=== PATIENT | female | born 1940 | race Caucasian/White ===

== ENCOUNTER 2019-05-13 15:41 | Observation (INO) ==
[2019-05-13] MEDS ORDERED: Isovue-370 500 ML BOTTLE IVP ONE (16:05)
[2019-05-13 16:15] LABS: Basophils % 0.1 %; Eosinophils # 0.1 K/mcL (0.0-0.6); Eosinophils % 0.6 %; Hematocrit 35.6 % (35.3-44.9); Immature Granulocytes % 0.9 % (0-4); Lymphocytes # 1.7 K/mcL (0.6-4.6); Lymphocytes % 11.5 %; Mean Corpuscular HGB Conc 33.7 g/dL (31.6-35.5); Mean Corpuscular Hemoglobin 32.4 pg (28.0-33.3); Mean Corpuscular Volume 96.2 fL (83.0-100.0); Monocytes # 0.8 K/mcL (0.0-1.3); Monocytes % 5.4 %; Neutrophils # 11.8 K/mcL (1.6-8.9); Platelet Count 113 K/mcL (140-400); Red Cell Distribution Width 15.3 % (11.5-14.5); Segmented Neutrophils % 81.5 %; White Blood Count 14.4 K/mcL (4.3-11.1)
[2019-05-13 16:37] LABS: BUN/Creatinine Ratio 21 (6-26); Blood Urea Nitrogen 15 mg/dL (8-23); Calcium 9.7 mg/dL (8.6-10.3); Carbon Dioxide 25 mEq/L (23-29); Chloride 101 mEq/L (98-107); Glucose 136 mg/dL (70-105); Osmolality,Calculated 293 (280-300); Potassium 4.1 mEq/L (3.5-5.1); Sodium 140 mEq/L (136-145); eGFR For African Americans > 60 (> 60); eGFR For Non-African Americans > 60 (> 60)
[2019-05-13 16:38] LABS: Troponin I 0.03 ng/mL (< 0.04)
[2019-05-13] MEDS ORDERED: Aspirin 325 MG TABLET PO ONE (17:07)
[2019-05-13] MEDS ORDERED: Naloxone 0.4 MG/ML INJ IVP PRN (17:56)
[2019-05-14] MEDS: Nitroglycerin 0.4 MG TAB.SUBL SL PRN ×2 (03:23→03:29)
[2019-05-14] MEDS ORDERED: Morphine Sulfate 2 MG/ML SYRINGE IVP ONE (03:52)
[2019-05-14 03:54] LABS: Basophils % 0.3 %; Eosinophils # 0.1 K/mcL (0.0-0.6); Eosinophils % 0.6 %; Hematocrit 35.1 % (35.3-44.9); Hemoglobin 11.6 g/dL (11.5-15.4); Lymphocytes # 1.8 K/mcL (0.6-4.6); Lymphocytes % 12.6 %; Mean Platelet Volume 9.7 fL (9.4-12.4); Monocytes # 0.8 K/mcL (0.0-1.3); Monocytes % 5.7 %; Neutrophils # 11.3 K/mcL (1.6-8.9); Platelet Count 106 K/mcL (140-400); Red Blood Count 3.62 M/mcL (3.82-4.97); Red Cell Distribution Width 15.2 % (11.5-14.5); Segmented Neutrophils % 79.8 %; White Blood Count 14.1 K/mcL (4.3-11.1)
[2019-05-14 04:09] LABS: BUN/Creatinine Ratio 26 (6-26); Blood Urea Nitrogen 19 mg/dL (8-23); Calcium 9.3 mg/dL (8.6-10.3); Carbon Dioxide 21 mEq/L (23-29); Chloride 106 mEq/L (98-107); Glucose 113 mg/dL (70-105); Osmolality,Calculated 285 (280-300); Potassium 4.1 mEq/L (3.5-5.1); Sodium 136 mEq/L (136-145); eGFR For African Americans > 60 (> 60); eGFR For Non-African Americans > 60 (> 60)
[2019-05-14 04:11] LABS: Troponin I < 0.03 ng/mL (< 0.04)
[2019-05-14] MEDS ORDERED: Regadenoson 0.4 MG/5 ML SYRINGE IVP ONE (07:15)
[2019-05-14] MEDS: Aspirin Enteric Coated 81 MG Tablet PO SCH (11:08)
[2019-05-15] MEDS ORDERED: *HR* Promethazine 25 MG/ML VIAL IVP ONE (03:20)
[2019-05-15] MEDS ORDERED: Morphine Sulfate 2 MG/ML SYRINGE IVP ONE (03:21)
[2019-05-15 04:42] LABS: Basophils % 0.4 %; Eosinophils # 0.1 K/mcL (0.0-0.6); Eosinophils % 0.5 %; Hematocrit 35.6 % (35.3-44.9); Hemoglobin 11.7 g/dL (11.5-15.4); Immature Granulocytes % 0.5 % (0-4); Lymphocytes # 1.3 K/mcL (0.6-4.6); Lymphocytes % 11.9 %; Mean Corpuscular HGB Conc 32.9 g/dL (31.6-35.5); Mean Corpuscular Hemoglobin 32.1 pg (28.0-33.3); Mean Corpuscular Volume 97.5 fL (83.0-100.0); Mean Platelet Volume 9.9 fL (9.4-12.4); Monocytes # 0.7 K/mcL (0.0-1.3); Monocytes % 6.3 %; Neutrophils # 8.8 K/mcL (1.6-8.9); Platelet Count 108 K/mcL (140-400); Red Blood Count 3.65 M/mcL (3.82-4.97); Red Cell Distribution Width 15.2 % (11.5-14.5); Segmented Neutrophils % 80.4 %
[2019-05-15 05:02] LABS: BUN/Creatinine Ratio 29 (6-26); Blood Urea Nitrogen 20 mg/dL (8-23); Calcium 9.3 mg/dL (8.6-10.3); Carbon Dioxide 23 mEq/L (23-29); Chloride 104 mEq/L (98-107); Glucose 134 mg/dL (70-105); Osmolality,Calculated 289 (280-300); Potassium 4.4 mEq/L (3.5-5.1); Sodium 137 mEq/L (136-145); eGFR For African Americans > 60 (> 60); eGFR For Non-African Americans > 60 (> 60)
[2019-05-15] MEDS: Aspirin Enteric Coated 81 MG Tablet PO SCH (08:17)
[2019-05-15 12:49] VITALS: BP 147/65
== END 2019-05-15 14:58 | disposition home or self-care (01) ==
LOC: 3BNU 15:41 → EMEROOARM 15:41 → 3BNU 18:00
PROVIDERS: ADMIT Internal Medicine; ATTEND Internal Medicine

== ENCOUNTER 2021-10-15 16:18 | Observation (INO) ==
[2021-10-15 19:19] LABS: Basophils % 0.3 %; Eosinophils # 0.1 K/mcL (0.0-0.6); Hematocrit 25.4 % (35.3-44.9); Hemoglobin 7.9 g/dL (11.5-15.4); Immature Granulocytes % 0.3 % (0-4); Lymphocytes # 1.5 K/mcL (0.6-4.6); Lymphocytes % 16.4 %; Mean Corpuscular HGB Conc 31.1 g/dL (31.6-35.5); Mean Corpuscular Hemoglobin 27.4 pg (28.0-33.3); Mean Corpuscular Volume 88.2 fL (83.0-100.0); Mean Platelet Volume 8.9 fL (9.4-12.4); Monocytes # 0.9 K/mcL (0.0-1.3); Monocytes % 9.3 %; Neutrophils # 6.7 K/mcL (1.6-8.9); Platelet Count 303 K/mcL (140-400); Red Blood Count 2.88 M/mcL (3.82-4.97); Red Cell Distribution Width 17.2 % (11.5-14.5); Segmented Neutrophils % 72.7 %; White Blood Count 9.2 K/mcL (4.3-11.1)
[2021-10-15 19:45] LABS: BUN/Creatinine Ratio 22 (6-26); Blood Urea Nitrogen 18 mg/dL (8-23); Calcium 8.8 mg/dL (8.6-10.3); Carbon Dioxide 24 mEq/L (23-29); Chloride 106 mEq/L (98-107); Glucose 98 mg/dL (70-105); Osmolality,Calculated 288 (280-300); Potassium 3.8 mEq/L (3.5-5.1); Sodium 138 mEq/L (136-145); Troponin I < 0.03 ng/mL (< 0.04); eGFR For African Americans > 60 (> 60); eGFR For Non-African Americans > 60 (> 60)
[2021-10-15 20:05] LABS: Adenovirus Not Detected (Not Detect); Bordetella Pertussis Not Detected (Not Detect); Chlamydophila pneumoniae Not Detected (Not Detect); Coronavirus 229E Not Detected (Not Detect); Coronavirus HKU1 Not Detected (Not Detect); Coronavirus NL63 Not Detected (Not Detect); Coronavirus OC43 Not Detected (Not Detect); Human Metapneumovirus Not Detected (Not Detect); Human Rhinovirus/Enterovirus Not Detected (Not Detect); Influenza A Subtype 2009 H1 Not Detected (Not Detect); Influenza B Not Detected (Not Detect); Mycoplasma pneumoniae Not Detected (Not Detect); Parainfluenza Virus 1 Not Detected (Not Detect); Parainfluenza Virus 2 Not Detected (Not Detect); Parainfluenza Virus 3 Not Detected (Not Detect); Parainfluenza Virus 4 Not Detected (Not Detect); Respiratory Syncytial Virus Not Detected (Not Detect); SARS-CoV-2 Not Detected (Not Detect)
[2021-10-15] MEDS ORDERED: Furosemide 20 MG/2 ML VIAL IVP ONE (20:24)
[2021-10-15] MEDS ORDERED: Acetaminophen 325 MG TABLET PO PRN (22:23)
[2021-10-15] MEDS ORDERED: Ondansetron 4 MG/2 ML VIAL IVP PRN (22:23)
[2021-10-15] MEDS ORDERED: Melatonin 3 MG TABLET PO PRN (22:23)
[2021-10-15] MEDS ORDERED: Naloxone 0.4 MG/ML INJ IVP PRN (22:23)
[2021-10-15] MEDS ORDERED: Perflutren Lipid Microsphere 1.3 ML in 0.9 % Sodium Chloride 8.7 ML IVP PRN (22:25)
[2021-10-16] MEDS ORDERED: Benzonatate 100 MG CAPSULE PO PRN (01:49)
[2021-10-16 05:03] LABS: Basophils % 0.4 %; Eosinophils # 0.2 K/mcL (0.0-0.6); Eosinophils % 2.1 %; Hematocrit 25.3 % (35.3-44.9); Hemoglobin 7.8 g/dL (11.5-15.4); Immature Granulocytes % 0.1 % (0-4); Lymphocytes # 1.2 K/mcL (0.6-4.6); Mean Corpuscular HGB Conc 30.8 g/dL (31.6-35.5); Mean Corpuscular Hemoglobin 27.1 pg (28.0-33.3); Mean Corpuscular Volume 87.8 fL (83.0-100.0); Mean Platelet Volume 8.9 fL (9.4-12.4); Monocytes # 0.7 K/mcL (0.0-1.3); Monocytes % 10.3 %; Neutrophils # 4.9 K/mcL (1.6-8.9); Platelet Count 290 K/mcL (140-400); Red Blood Count 2.88 M/mcL (3.82-4.97); Red Cell Distribution Width 17.2 % (11.5-14.5); Segmented Neutrophils % 70.1 %; White Blood Count 7.1 K/mcL (4.3-11.1)
[2021-10-16 05:20] LABS: % Iron Saturation 6 % (15-50); Iron 18 mcg/dL (50-170); Transferrin 199 mg/dL (203-362)
[2021-10-16 05:32] LABS: Alanine Aminotransferase 14 Units/L (7-52); Albumin 3.1 g/dL (3.5-5.7); Albumin/Globulin Ratio 1.2 (1.1-2.2); Alkaline Phosphatase 56 Units/L (34-104); Aspartate Amino Transferase 15 Units/L (13-39); BUN/Creatinine Ratio 19 (6-26); Bilirubin,Total 0.8 mg/dL (0.3-1.0); Blood Urea Nitrogen 15 mg/dL (8-23); Calcium 8.6 mg/dL (8.6-10.3); Carbon Dioxide 26 mEq/L (23-29); Chloride 105 mEq/L (98-107); Globulin 2.5 g/dL (2.4-3.5); Glucose 112 mg/dL (70-105); Magnesium 1.9 mg/dL (1.6-2.6); Osmolality,Calculated 292 (280-300); Phosphorous 4.3 mg/dL (2.7-4.5); Potassium 3.6 mEq/L (3.5-5.1); Sodium 140 mEq/L (136-145); Total Protein 5.6 g/dL (6.4-8.9); eGFR For African Americans > 60 (> 60); eGFR For Non-African Americans > 60 (> 60)
[2021-10-16 05:39] LABS: Ferritin 99 ng/mL (10-120)
[2021-10-16 05:48] LABS: Folate > 22.3 ng/mL (3.0-16.0); Vitamin B12 560 pg/mL (250-1100)
[2021-10-16] MEDS ORDERED: *HR* Heparin 5,000 UNIT/ML VIAL SQ SCH (06:00)
[2021-10-16] MEDS: Furosemide 20 MG/2 ML VIAL IVP SCH (08:08)
[2021-10-16] MEDS: lisinopriL 5 MG TABLET PO SCH (08:08)
[2021-10-17 05:34] LABS: Basophils % 0.3 %; Eosinophils # 0.2 K/mcL (0.0-0.6); Eosinophils % 1.6 %; Hematocrit 24.7 % (35.3-44.9); Hemoglobin 7.4 g/dL (11.5-15.4); Immature Granulocytes % 0.4 % (0-4); Lymphocytes # 1.3 K/mcL (0.6-4.6); Lymphocytes % 13.3 %; Mean Corpuscular Hemoglobin 26.5 pg (28.0-33.3); Mean Corpuscular Volume 88.5 fL (83.0-100.0); Mean Platelet Volume 8.9 fL (9.4-12.4); Monocytes # 1.2 K/mcL (0.0-1.3); Monocytes % 12.2 %; Neutrophils # 6.8 K/mcL (1.6-8.9); Nucleated Red Blood Cells 0.2 /100 WBC (0); Platelet Count 283 K/mcL (140-400); Red Blood Count 2.79 M/mcL (3.82-4.97); Red Cell Distribution Width 17.5 % (11.5-14.5); Segmented Neutrophils % 72.2 %; White Blood Count 9.4 K/mcL (4.3-11.1)
[2021-10-17 05:42] LABS: BUN/Creatinine Ratio 20 (6-26); Blood Urea Nitrogen 19 mg/dL (8-23); Calcium 8.2 mg/dL (8.6-10.3); Carbon Dioxide 27 mEq/L (23-29); Chloride 106 mEq/L (98-107); Glucose 123 mg/dL (70-105); Osmolality,Calculated 292 (280-300); Potassium 3.8 mEq/L (3.5-5.1); Sodium 139 mEq/L (136-145); eGFR For African Americans > 60 (> 60); eGFR For Non-African Americans 57 (> 60)
[2021-10-17] MEDS: Furosemide 20 MG/2 ML VIAL IVP SCH (08:08)
[2021-10-17] MEDS: lisinopriL 5 MG TABLET PO SCH (08:08)
[2021-10-17] MEDS ORDERED: Multivit/Ca/Min/Fe/FA 1 TAB TABLET PO SCH (09:00)
[2021-10-17 10:53] VITALS: O2SAT 95
[2021-10-17 10:57] VITALS: BP 126/35; PULSE 60; TEMP 97.8
== END 2021-10-17 12:10 | disposition home or self-care (01) ==
LOC: EMEROOARM 16:18 → 2NENU 16:18 → SUATTDRO 21:12 → 2NENU 22:18
PROVIDERS: ADMIT Internal Medicine; ATTEND Internal Medicine

== ENCOUNTER 2021-12-12 07:47 | Inpatient (IN) ==
[2021-12-12] MEDS ORDERED: Ondansetron 4 MG/2 ML VIAL IVP ONE (08:00)
[2021-12-12] MEDS ORDERED: GI Cocktail 40 ML EACH PO ONE (08:00)
[2021-12-12 08:28] LABS: Basophils % 0.2 %; Eosinophils % 0.3 %; Hematocrit 31.3 % (35.3-44.9); Hemoglobin 9.7 g/dL (11.5-15.4); Immature Granulocytes % 0.4 % (0-4); Lymphocytes # 1.7 K/mcL (0.6-4.6); Lymphocytes % 16.3 %; Mean Corpuscular Volume 83.9 fL (83.0-100.0); Mean Platelet Volume 8.8 fL (9.4-12.4); Monocytes # 0.9 K/mcL (0.0-1.3); Monocytes % 8.3 %; Neutrophils # 7.9 K/mcL (1.6-8.9); Platelet Count 301 K/mcL (140-400); Red Blood Count 3.73 M/mcL (3.82-4.97); Red Cell Distribution Width 17.2 % (11.5-14.5); Segmented Neutrophils % 74.5 %; White Blood Count 10.6 K/mcL (4.3-11.1)
[2021-12-12 08:42] LABS: INR 1.2; Prothrombin Time 12.9 Seconds (9.4-12.1)
[2021-12-12 08:44] LABS: Activated Partial Thrombo Time 33.2 Seconds (26.0-36.0)
[2021-12-12 08:47] LABS: Albumin/Globulin Ratio 0.8 (1.1-2.2); Bilirubin,Direct 0.1 mg/dL (0.0-0.2); Bilirubin,Indirect 0.2 mg/dL (0.0-1.0); Bilirubin,Total 0.3 mg/dL (0.3-1.0); Globulin 3.6 g/dL (2.4-3.5); Total Protein 6.6 g/dL (6.4-8.9)
[2021-12-12 08:48] LABS: BUN/Creatinine Ratio 35 (6-26); Blood Urea Nitrogen 26 mg/dL (8-23); Calcium 9.1 mg/dL (8.6-10.3); Carbon Dioxide 24 mEq/L (23-29); Chloride 102 mEq/L (98-107); Glucose 157 mg/dL (70-105); Osmolality,Calculated 290 (280-300); Potassium 3.9 mEq/L (3.5-5.1); Sodium 136 mEq/L (136-145); Troponin I < 0.03 ng/mL (< 0.04); eGFR For African Americans > 60 (> 60); eGFR For Non-African Americans > 60 (> 60)
[2021-12-12] MEDS ORDERED: Naloxone 0.4 MG/ML INJ IVP PRN (09:45)
[2021-12-12] MEDS ORDERED: Melatonin 3 MG TABLET PO PRN (09:45)
[2021-12-12] MEDS ORDERED: Iopamidol - 370 500 ML MLS IVP ONE (10:38)
[2021-12-12] MEDS: amLODIPine 5 MG TABLET PO SCH (11:17)
[2021-12-12 14:19] LABS: Troponin I < 0.03 ng/mL (< 0.04)
[2021-12-12 15:05] LABS: Magnesium 2.3 mg/dL (1.6-2.6)
[2021-12-12] MEDS ORDERED: *HR* Propofol 200 MG/20 ML VIAL IVP ONE (16:12)
[2021-12-12] MEDS ORDERED: Lidocaine -MPF 2% 5 ML VIAL ONE (16:12)
[2021-12-12] MEDS: Ringers Solution, Lactated 1,000 ML IVC SCH (16:29)
[2021-12-12] MEDS ORDERED: *HR* EPINEPHrine 1 MG/10 ML SYRINGE INTRATRACH PRN (17:06)
[2021-12-12] MEDS: Pantoprazole 40 MG VIAL IVP SCH (19:12)
[2021-12-13] MEDS: Pantoprazole 40 MG VIAL IVP SCH ×2 (05:23→16:57)
[2021-12-13 06:19] LABS: BUN/Creatinine Ratio 25 (6-26); Blood Urea Nitrogen 19 mg/dL (8-23); Calcium 8.7 mg/dL (8.6-10.3); Carbon Dioxide 27 mEq/L (23-29); Chloride 104 mEq/L (98-107); Glucose 89 mg/dL (70-105); Magnesium 2.2 mg/dL (1.6-2.6); Osmolality,Calculated 286 (280-300); Potassium 4.1 mEq/L (3.5-5.1); Sodium 137 mEq/L (136-145); eGFR For African Americans > 60 (> 60); eGFR For Non-African Americans > 60 (> 60)
[2021-12-13] MEDS: Furosemide 40 MG TABLET PO SCH (09:58)
[2021-12-13 10:42] LABS: Basophils % 0.3 %; Eosinophils # 0.1 K/mcL (0.0-0.6); Hematocrit 31.2 % (35.3-44.9); Hemoglobin 9.3 g/dL (11.5-15.4); Immature Granulocytes % 0.3 % (0-4); Lymphocytes # 1.1 K/mcL (0.6-4.6); Lymphocytes % 15.8 %; Mean Corpuscular HGB Conc 29.8 g/dL (31.6-35.5); Mean Corpuscular Hemoglobin 25.8 pg (28.0-33.3); Mean Corpuscular Volume 86.7 fL (83.0-100.0); Mean Platelet Volume 8.9 fL (9.4-12.4); Monocytes # 0.6 K/mcL (0.0-1.3); Monocytes % 8.4 %; Neutrophils # 5.2 K/mcL (1.6-8.9); Platelet Count 307 K/mcL (140-400); Red Cell Distribution Width 17.2 % (11.5-14.5); Segmented Neutrophils % 74.2 %
[2021-12-13 10:57] LABS: BUN/Creatinine Ratio 23 (6-26); Blood Urea Nitrogen 19 mg/dL (8-23); Calcium 9.1 mg/dL (8.6-10.3); Carbon Dioxide 27 mEq/L (23-29); Chloride 104 mEq/L (98-107); Glucose 87 mg/dL (70-105); Osmolality,Calculated 286 (280-300); Potassium 4.2 mEq/L (3.5-5.1); Sodium 137 mEq/L (136-145); eGFR For African Americans > 60 (> 60); eGFR For Non-African Americans > 60 (> 60)
[2021-12-13] MEDS: Aspirin Enteric Coated 81 MG Tablet PO SCH (13:46)
[2021-12-13] MEDS: amLODIPine 5 MG TABLET PO SCH (13:46)
[2021-12-13] MEDS: Ringers Solution, Lactated 1,000 ML IVC SCH (13:50)
[2021-12-13] MEDS: Sucralfate 1 GM TABLET PO SCH ×2 (16:57→21:48)
[2021-12-14 02:26] LABS: Basophils % 0.1 %; Eosinophils # 0.1 K/mcL (0.0-0.6); Eosinophils % 0.8 %; Hematocrit 29.7 % (35.3-44.9); Hemoglobin 9.1 g/dL (11.5-15.4); Immature Granulocytes % 0.3 % (0-4); Lymphocytes # 1.5 K/mcL (0.6-4.6); Lymphocytes % 15.1 %; Mean Corpuscular HGB Conc 30.6 g/dL (31.6-35.5); Mean Corpuscular Hemoglobin 25.8 pg (28.0-33.3); Mean Corpuscular Volume 84.1 fL (83.0-100.0); Mean Platelet Volume 9.2 fL (9.4-12.4); Monocytes # 0.9 K/mcL (0.0-1.3); Monocytes % 9.1 %; Neutrophils # 7.6 K/mcL (1.6-8.9); Platelet Count 317 K/mcL (140-400); Red Blood Count 3.53 M/mcL (3.82-4.97); Red Cell Distribution Width 17.2 % (11.5-14.5); Segmented Neutrophils % 74.6 %; White Blood Count 10.2 K/mcL (4.3-11.1)
[2021-12-14 02:46] LABS: BUN/Creatinine Ratio 27 (6-26); Blood Urea Nitrogen 25 mg/dL (8-23); Calcium 8.6 mg/dL (8.6-10.3); Carbon Dioxide 26 mEq/L (23-29); Chloride 102 mEq/L (98-107); Glucose 103 mg/dL (70-105); Osmolality,Calculated 287 (280-300); Potassium 3.8 mEq/L (3.5-5.1); Sodium 136 mEq/L (136-145); eGFR For African Americans > 60 (> 60); eGFR For Non-African Americans 59 (> 60)
[2021-12-14] MEDS ORDERED: *HR* HYDROcodone/Acet 10/325 mg TABLET PO ONE (04:29)
[2021-12-14] MEDS: Pantoprazole 40 MG VIAL IVP SCH ×2 (06:12→17:18)
[2021-12-14] MEDS: Aspirin Enteric Coated 81 MG Tablet PO SCH (07:43)
[2021-12-14] MEDS: Sucralfate 1 GM TABLET PO SCH ×3 (07:43→17:18)
[2021-12-14] MEDS: amLODIPine 5 MG TABLET PO SCH (07:43)
[2021-12-14] MEDS: Furosemide 40 MG TABLET PO SCH (07:43)
[2021-12-14] MEDS ORDERED: Perflutren Lipid Microsphere 1.3 ML in 0.9 % Sodium Chloride 8.7 ML IVP PRN (10:05)
[2021-12-15] MEDS: Sucralfate 1 GM TABLET PO SCH ×3 (00:06→12:35)
[2021-12-15] MEDS ORDERED: Acetaminophen 325 MG TABLET PO ONE (05:50)
[2021-12-15] MEDS: Pantoprazole 40 MG VIAL IVP SCH (05:58)
[2021-12-15] MEDS ORDERED: Cholecalciferol (D-3) 1,000 UNIT (25MCG) TABLET PO SCH (09:00)
[2021-12-15] MEDS: amLODIPine 5 MG TABLET PO SCH (10:10)
[2021-12-15] MEDS: Furosemide 40 MG TABLET PO SCH (10:11)
[2021-12-15 11:17] VITALS: BP 120/50; PULSE 54; TEMP 97.7; O2SAT 95
== END 2021-12-15 15:42 | disposition home health service (06) | DRG 378 ==
LOC: EMEROOARM 07:47 → 3ANU 07:47
PROVIDERS: ADMIT Internal Medicine; ATTEND Internal Medicine